=== PATIENT | male | born 1980 | race Caucasian/White ===

== ENCOUNTER 2016-06-27 22:05 | Emergency (ER) | payer MEDICAID, OTHER ==
[~2016-06-27] VITALS: Ht 182.9 cm; Wt 63.5 kg
--- NOTE | 2016-06-27 22:45 | NUR ---
PT BIB [facility] C/O SI WITH PLAN TO WALK IN FRONT OF TRAIN. DENIES HI. CONTRACTS FOR SAFETY AT THIS TIME. NAD NOTED. RESP EVEN UNLABORED. NO PHYSICAL COMPLAINTS. ALSO REPORTS HE IS OUT OF HIS MEDICATION. IN ER BED 12.
[2016-06-27 23:17] LABS: BASOPHILS % (AUTO) 0.2 % (0.0-2.0); EOSINOPHILS % (AUTO) 0.4 % (0.0-6.0); HEMATOCRIT 46 % (39-51); HEMOGLOBIN 15.4 g/dL (13.5-17.5); LYMPHOCYTES % (AUTO) 14.6 % (20.0-44.0); MEAN CORPUSCULAR HEMOGLOBIN 30 PG (26.0-33.0); MEAN CORPUSCULAR HGB CONC 33 g/dl (31.0-36.0); MEAN CORPUSCULAR VOLUME 89 fL (80-96); MONOCYTES # (AUTO) 0.5 /CMM (0.1-1.30); NEUTROPHILS # (AUTO) 5.2 /CMM (1.8-8.9); NEUTROPHILS % (AUTO) 76.8 % (43.0-81.0); PLATELET COUNT (AUTO) 122 /CMM (150-450); RDW COEFFICIENT OF VARIATION 13.4 (11.5-15.0); RED BLOOD CELL COUNT(AUTO) 5.18 MIL/uL (4.5-6.0); WHITE BLOOD COUNT (AUTO) 6.7 K/uL (4.3-11.0)
[2016-06-27 23:27] LABS: CALCIUM, SERUM 9.3 mg/dL (8.5-10.1); CARBON DIOXIDE 30 mmol/L (21-32); CHLORIDE 106 mmol/L (98-107); CREATININE 1.4 mg/dL (0.6-1.3); GFR 58 mL/min (>60); GLUCOSE 92 mg/dL (74-106); POTASSIUM 4.8 mmol/L (3.5-5.1); SODIUM SERUM 146 mmol/L (136-145); UREA NITROGEN, BLOOD 24 mg/dL (7-18)
[2016-06-27 23:31] LABS: ALCOHOL, BLOOD < 3 mg/dL (0-0)
--- NOTE | 2016-06-28 00:47 | NUR ---
PT PROVIDED URINE SAMPLE. PROVIDED WITH FOOD AND JUICE PER REQUEST.
[2016-06-28 01:06] LABS: CANNABINOID, URINE NEGATIVE (NEGATIVE); PHENCYCLIDINE SCREEN,URINE NEGATIVE (NEGATIVE)
--- NOTE | 2016-06-28 02:09 | NUR ---
Patient discharged to home in stable condition. Written and verbal after care instructions given. Patient verbalizes understanding of instruction. PROVIDED WITH RESOURCES BY ANA CRISTINA GARCIA LCSW.
[2016-06-28 02:10] VITALS: BP 119/82
== END 2016-06-28 02:11 | disposition home or self-care (01) ==
LOC: ER 22:07
DX: R45.851 Suicidal ideations (principal); F20.9 Schizophrenia, unspecified; I48.0 Paroxysmal atrial fibrillation; Z88.0 Allergy status to penicillin; Z91.14 Patient's other noncompliance with medication regimen; Z88.8 Allergy status to other drugs, medicaments and biological substances
CPT/HCPCS: 36415; 80048; 80305; 85025; 99284; A4606; G0480; Z7610